=== PATIENT | female | born 1985 | race Caucasian/White ===

== ENCOUNTER 2016-07-02 20:15 | Inpatient (IN) | payer OTHER ==
[2016-07-02] MEDS: DEXTROSE 5%-LACTATED RINGERS 1,000 ML IV SCH (21:00)
[2016-07-02 21:43] LABS: BASOPHIL 0.2 % (0-2.0); EOSINOPHIL 1.1 % (0-4.5); MCH 25.8 pg (25.7-33.7); MCHC 31.9 g/dl (32.0-36.0); MEAN CELL VOLUME 80.8 fl (80-96); MEAN PLT VOLUME 10.8 fl (7.5-11.1); NEUTROPHILS 77.1 % (42.8-82.8); PLATELET COUNT 203 K/MM3 (134-434); RDW 15.9 % (11.6-15.6); WHITE BLOOD COUNT 10.5 K/mm3 (4.0-10.0)
[2016-07-02] MEDS ORDERED: AMPICILLIN - 2 GM in SODIUM CHLORIDE 100 ML IVPB ONE (21:53)
[2016-07-02] MEDS ORDERED: BUTORPHANOL TARTRATE 1 MG/ML VIAL IVPUSH PRN (21:54)
[2016-07-02 21:59] LABS: INR 0.95 (0.82-1.09); PROTHROMBIN TIME (PATIENT) 10.4 SEC (9.98-11.88)
--- NOTE | 2016-07-02 21:59 | HP ---
Past Medical History - Primary Care Physician PCP:: Sameer Killian - Admission Chief Complaint: 40.1 weeks, labor History Source: Patient Limitations to Obtaining History: No Limitations - Past Medical History Cardiovascular: Yes: Other (MVP). No: AFIB, Aneurysm, Aortic Insufficiency, Aortic Stenosis, CAD, CHF, Deep Vein Thrombosis, HTN, Hyperlipdemia, NV, Mitral Insufficiency, Mitral Stenosis, Murmur, Pulmonary Hypertension - Past Surgical History Past Surgical History: Yes: None Hx Myomectomy: No Hx Transabdominal Cerclage: No - Smoking History Smoking history: Never smoked Have you smoked in the past 12 months: No Aproximately how many cigarettes per day: 0 - Alcohol/Substance Use Hx Alcohol Use: No History of Substance Use: reports: None - Social History Usual Living Arrangement: Yes: With Spouse History of Recent Travel: No Home Medications - Allergies Allergies/Adverse Reactions: Allergies Allergy/AdvReac Type Severity Reaction Status Date / Time Shellfish Allergy Mild Vomiting Verified 08/06/15 11:41 - Home Medications Home Medications: Ambulatory Orders Pnv95/Iron Fum/Folic Acid [ Caplet] 1 each PO DAILY 08/06/15 Review of Systems - Review of Systems Constitutional: reports: No Symptoms Eyes: reports: No Symptoms HENT: reports: No Symptoms Neck: reports: No Symptoms Cardiovascular: reports: No Symptoms Respiratory: reports: No Symptoms Gastrointestinal: reports: No Symptoms Genitourinary: reports: No Symptoms Breasts: reports: No Symptoms Reported Musculoskeletal: reports: No Symptoms Integumentary: reports: No Symptoms Neurological: reports: No Symptoms Endocrine: reports: No Symptoms Hematology/Lymphatic: reports: No Symptoms Psychiatric: reports: No Symptoms Physical Exam - Maternity Vital Signs: Vital Signs Temperature Pulse Rate 78 07/02/16 21:00 Respiratory Rate 20 07/02/16 21:00 Blood Pressure 139/82 07/02/16 21:00 O2 Sat by Pulse Oximetry (%) Constitutional: Yes: Well Nourished, No Distress, Calm Eyes: Yes: WNL, Conjunctiva Clear, EOM Intact HENT: Yes: WNL, Atraumatic, Normocephalic Neck: Yes: WNL, Supple, Trachea Midline Cardiovascular: Yes: WNL, Regular Rate and Rhythm Breast(s): Yes: WNL - Abdominal Exam/OB Number of Fetuses: Single Presentation: Vertex Contractions: Yes Regularity: Irregular Intensity: Mod/Strong Monitor Mode: External Heart Rate Location: [facility] Category: I Accelerations: Uniform Decelerations: None - Vaginal Exam/OB Vaginal Bleediing: No Speculum Exam: No Dilatation (cm): 3 cm Effacement (%): 75 Amniotic Membrane Status: Bulging Presentation: Vertex/Position Station: -2 - Physical Exam Musculoskeletal: Yes: WNL Extremities: Yes: WNL Edema: LLE: Trace, RLE: Trace Deep Tendon Reflex Grade: Normal +2 ...Motor Strength: WNL Psychiatric: Yes: WNL - Labs Lab Results: CBC, BMP 07/02/16 21:03 Hemorrhage Risk Assessment - Risk Factors Risk Score: 0 Risk Level: Low Risk Problem List - Problems (1) Post term over 40 weeks Code(s): O48.0 - POST-TERM (2) Labor established Code(s): [id number] - Assessment/Plan admit, fhm, if contraction irregular,pitocin stimulation, rba discussed
[2016-07-02] MEDS ORDERED: OXYTOCIN 15 UNITS/ LR 250 ML 250 ML IVPB SCH (22:00)
[2016-07-02 22:02] LABS: ACTIVATED PTT 27.9 SECONDS (26.9-34.4)
[2016-07-02 22:36] LABS: ANION GAP 11 (8-16); BILIRUBIN,TOTAL 0.3 mg/dL (0.2-1.0); CALCIUM 9.1 mg/dL (8.5-10.1); CO2 25 mmol/L (21-32); COCKROFT - GAULT 0; CREATININE 0.5 mg/dL (0.55-1.02); GLUCOSE,RANDOM 75 mg/dL (74-106); SGOT/AST 15 U/L (15-37); SGPT/ALT 14 U/L (12-78); TOT PROT 7.4 g/dl (6.4-8.2)
[2016-07-02 22:37] LABS: ALK PHOS 231 U/L (45-117)
[2016-07-02 22:59] VITALS: BMI 44.4
[2016-07-02 23:06] LABS: HIV 1 & 2 AB NEGATIVE; HIV 1 AGp24 NEGATIVE
[2016-07-03] MEDS: DEXTROSE 5%-LACTATED RINGERS 1,000 ML IV SCH
--- NOTE | 2016-07-03 00:36 | PN ---
Progress Note (short form) - Note Progress Note: cv 4 to 5 cm 80 vx -2 mi, fhr cat 1, arom, clear , contraction strong now Problem List - Problems (1) Post term over 40 weeks Code(s): O48.0 - POST-TERM (2) Labor established Code(s): [id number] -
[2016-07-03] MEDS ORDERED: ELECTROLYTE-148 SOLN 1,000 ML IV SCH (00:45)
[2016-07-03] MEDS ORDERED: AMPICILLIN - 1 GM in SODIUM CHLORIDE 100 ML IVPB SCH (01:45)
[2016-07-03] MEDS ORDERED: FENTANYL/BUPIVACAINE/NS/PF - PCEA - 50 ML DISP.SYRIN EP SCH (02:00)
[2016-07-03] MEDS ORDERED: BENZOCAINE 20% 57 GM BOTTLE TP PRN (02:34)
[2016-07-03] MEDS ORDERED: BENZOCAINE 28 GM HEMORRHOIDAL OINTMENT TP PRN (02:34)
[2016-07-03] MEDS ORDERED: IBUPROFEN 600 MG TABLET (FP) PO PRN (02:34)
[2016-07-03] MEDS ORDERED: WITCH HAZEL 50% (TUCKS) 40 PAD/JAR PAD TP PRN (02:34)
[2016-07-03] MEDS ORDERED: METHYLERGONOVINE MALEATE 0.2 MG/1 ML AMP IM PRN (02:34)
[2016-07-03] MEDS ORDERED: BISACODYL 10 MG SUPP.RECT RC PRN (02:34)
[2016-07-03] MEDS ORDERED: ACETAMINOPHEN 325 MG TABLET (FP) PO PRN (02:34)
--- NOTE | 2016-07-03 02:37 | PN ---
Progress Note (short form) - Note Progress Note: 2 am cx full 199 vx 2+ pushing, fhr cat1 Problem List - Problems (1) Post term over 40 weeks Code(s): O48.0 - POST-TERM (2) Labor established Code(s): [id number] -
--- NOTE | 2016-07-03 02:40 | PN ---
Progress Note (short form) - Note Progress Note: delivery note cx full, headon perinium, median episiotomy done, head delivered , nasopharynx suctioned , ant and post shoulderwith no difficulty, baby girl 8/9. episiotomy in 3 latyes with 2 o chromiic repaired , no complication Problem List - Problems (1) Post term over 40 weeks Code(s): O48.0 - POST-TERM (2) Labor established Code(s): [id number] -
[2016-07-03 02:42] LABS: ARTERIAL BLD GAS O2 SATURATION 14.9 % (90-98.9); ARTERIAL BLOOD GAS BASE EXCESS -4.4 meq/l (-2-2); ARTERIAL BLOOD GAS HCO3 25.5 meq/L (22-26)
[2016-07-03 02:44] LABS: VENOUS BLOOD GAS HCO3 24.6 meq/L (19-25); VENOUS PH 7.27 (7.32-7.42)
[2016-07-03] MEDS ORDERED: D5W-LR W/ 20 UNITS OXYTOCIN 1,000 ML IV SCH (02:45)
[2016-07-03 02:46] LABS: ART PUNCT SITE OTHER; ARTERIAL BLOOD GAS PO2 14.4 mmHg (80-100); LPM/O2% 21%; PT. ON O2? no; TYPE OF O2 room air
[2016-07-03] MEDS ORDERED: DIPHTH,PERTUSS(ACELL),TET 0.5 ML DISP.SYRIN IM ONE (10:00)
[2016-07-03] MEDS ORDERED: PRENATAL VITAMINS W/ FOLIC ACID TABLET (FP) PO SCH (10:00)
[2016-07-03] MEDS ORDERED: INFLUENZA VACCINE 60 MCG/0.5 ML (P/F DISP.SYRIN 16-17) IM ONE (10:00)
[2016-07-03] MEDS: FERROUS SO4 325 MG TABLET (FP) PO SCH ×2 (10:25→21:38)
[2016-07-03] MEDS: PRENATAL VITAMINS W/ FOLIC ACID TABLET (FP) PO SCH (10:26)
[2016-07-04 07:06] LABS: BASOPHIL 0.4 % (0-2.0); EOSINOPHIL 1.7 % (0-4.5); MCH 26.1 pg (25.7-33.7); MCHC 32.1 g/dl (32.0-36.0); MEAN CELL VOLUME 81.1 fl (80-96); MEAN PLT VOLUME 10.2 fl (7.5-11.1); NEUTROPHILS 68.5 % (42.8-82.8); PLATELET COUNT 176 K/MM3 (134-434); RDW 16.2 % (11.6-15.6); WHITE BLOOD COUNT 9.8 K/mm3 (4.0-10.0)
--- NOTE | 2016-07-04 08:57 | PN ---
Post Progress Note - Subjective Subjective: 31 yo Para 2, status post normal vaginal delivery, seen and evaluated. Doing well. She's breast feeding. Type of Delivery: Vital Signs: Vital Signs Temperature 97.2 F L 07/04/16 07:47 Pulse Rate 72 07/04/16 07:47 Respiratory Rate 18 07/04/16 07:47 Blood Pressure 141/73 07/04/16 07:47 O2 Sat by Pulse Oximetry (%) 99 07/03/16 02:10 Breast Exam: Yes: Soft, Other (No engorgement) Uterus: Yes: Fundus Firm Abdomen/GI: Yes: Abdomen soft, Tolerating PO Lochia: Yes: Rubra Lochia, amount: Moderate Extremities: Yes: Calves non-tender Perineum: Yes: Episiotomy (healing wound) Activity: Ambulating - Labs Labs: CBC WBC 9.8 K/mm3 (4.0-10.0) 07/04/16 06:00 RBC 4.28 M/mm3 (3.60-5.2) 07/04/16 06:00 Hgb 11.2 GM/dL (10.7-15.3) 07/04/16 06:00 Hct 34.7 % (32.4-45.2) 07/04/16 06:00 MCV 81.1 fl (80-96) 07/04/16 06:00 MCHC 32.1 g/dl (32.0-36.0) 07/04/16 06:00 RDW 16.2 % (11.6-15.6) H 07/04/16 06:00 Plt Count 176 K/MM3 (134-434) 07/04/16 06:00 MPV 10.2 fl (7.5-11.1) 07/04/16 06:00 Neutrophils % 68.5 % (42.8-82.8) 07/04/16 06:00 Lymphocytes % 23.8 % (8-40) D 07/04/16 06:00 Monocytes % 5.6 % (3.8-10.2) 07/04/16 06:00 Eosinophils % 1.7 % (0-4.5) 07/04/16 06:00 Basophils % 0.4 % (0-2.0) 07/04/16 06:00 Assessment/Plan Status post vaginal delivery Stable Continue routine care
--- NOTE | 2016-07-04 08:59 | DS ---
Physical Exam-BIOCHEMICAL ENGINEER Vital Signs: Vital Signs Temperature 97.2 F L 07/04/16 07:47 Pulse Rate 72 07/04/16 07:47 Respiratory Rate 18 07/04/16 07:47 Blood Pressure 141/73 07/04/16 07:47 O2 Sat by Pulse Oximetry (%) 99 07/03/16 02:10 Constitutional: Yes: Well Nourished Eyes: Yes: Conjunctiva Clear HENT: Yes: Atraumatic Neck: Yes: Supple, Trachea Midline Cardiovascular: Yes: Regular Rate and Rhythm Respiratory: Yes: Regular, CTA Bilaterally Gastrointestinal: Yes: Normal Bowel Sounds Pelvis: Yes: WNL External Genitalia: Yes: Normal Vaginal Exam: Yes: Normal Cervix: Yes: Normal Uterus: Yes: Firm ....Post : Yes: Uterus firm, Moderate lochia rubra Breast(s): Yes: WNL, Other (No engorgement) Integumentary: Yes: WNL Neurological: Yes: Alert, Oriented ...Motor Strength: WNL Psychiatric: Yes: Alert, Oriented Labs: CBC, BMP 07/04/16 06:00 07/02/16 21:03 Delivery - Delivery Type of Anesthesia: Local, Epidural Episiotomy/Laceration: Midline EBL (cc): 300 Delivery, Single - Stages of Labor Date 1st Stage Initiatied: 07/02/16 Time 1st Stage Initiated: 18:00 Date 2nd Stage Initiated: 07/03/16 Time 2nd Stage Initiated: 02:00 Date of Delivery: 07/03/16 Time of Delivery: 02:20 Time Placenta Delivered: 02:22 - Condition of Soaker Meat/Equal Employment Opportunity Officer Present: No Gender: Female Weight: 6 lb 11 oz Position: Left, OA Total Hours ROM (Hrs/Mins): 1hr/42mins - 1 Minute Total Score: 8 5 Minutes Total Score: 9 - [place] Feeding Plan Initial Plan: Elected not to breastfeed exclusively throughout hospitalization Discharge Summary Reason For Visit: ADMIT-LABOR Current Active Problems Labor established (Acute) Post term over 40 weeks (Acute) Procedures: Principal: Normal spontaneous vaginal delivery Hospital Course: Routine care Condition: Good - Instructions Diet, Activity, Other Instructions: Regular diet No douching, no intercourse x 6 weeks. F/U in clinic in 6 weeks - Home Medications Comprehensive Discharge Medication List: Ambulatory Orders Pnv95/Iron Fum/Folic Acid [ Caplet] 1 each PO DAILY 08/06/15
[2016-07-04] MEDS: PRENATAL VITAMINS W/ FOLIC ACID TABLET (FP) PO SCH (09:13)
[2016-07-04] MEDS: FERROUS SO4 325 MG TABLET (FP) PO SCH ×2 (09:13→21:21)
[2016-07-04] MEDS ORDERED: SENNOSIDES/DOCUSATE COMBO (SENNA PLUS) TABLET (UD) PO PRN (22:00)
[2016-07-05] MEDS: FERROUS SO4 325 MG TABLET (FP) PO SCH (09:48)
[2016-07-05] MEDS: PRENATAL VITAMINS W/ FOLIC ACID TABLET (FP) PO SCH (09:48)
[2016-07-05 11:29] VITALS: BP 140/78; PULSE 76; TEMP 98.1
== END 2016-07-05 11:50 | disposition home or self-care (01) | DRG 560 ==
LOC: JDEL 20:15 → JLDR 20:35 → J3W 07-03 04:45
PROVIDERS: ADMIT Obstetrics & Gynecology; ATTEND Obstetrics & Gynecology
PROC: 10E0XZZ Delivery of Products of Conception, External Approach (ICD-10-PCS; principal; 2016-07-03)
PROC: 0W8NXZZ Division of Female Perineum, External Approach (ICD-10-PCS; 2016-07-03)
DX: O48.0 Post-term pregnancy (principal); Z3A.40 40 weeks gestation of pregnancy; Z37.0 Single live birth
CPT/HCPCS: 36415; 36600; 59409; 80053; 82803; 85025; 85610; 85730; 86593; 86762; 86850; 86900; 86901; 87340; 87389; 90686; 90715; G0008

== ENCOUNTER 2018-05-04 17:49 | Inpatient (IN) | payer OTHER ==
[2018-05-04] MEDS ORDERED: OXYTOCIN 20 UNITS in 0.9% NS 20 UNIT/1,000 ML INFUS.BAG IV ONE ×2 (18:05→20:42)
[2018-05-04] MEDS ORDERED: LIDOCAINE HCL 1% PRESERVATIVE FREE - 30ML VIAL ONE (19:30)
--- NOTE | 2018-05-04 19:53 | HP ---
Past Medical History - Admission Chief Complaint: Delivered a baby at home History of Present Illness: 33 yo brought to L&D by ambulance after home delivery. Placenta delivered in ambulance. Patient sustained a second degree perineal tear. She never had care. She claims that she only knew about the one week ago. History Source: Patient Limitations to Obtaining History: No Limitations - Past Medical History Cardiovascular: Yes: Other (MVP). No: AFIB, Aneurysm, Aortic Insufficiency, Aortic Stenosis, CAD, CHF, Deep Vein Thrombosis, HTN, Hyperlipdemia, [place], Mitral Insufficiency, Mitral Stenosis, Murmur, Pulmonary Hypertension ...: 3 ...Para: 3 - Past Surgical History Past Surgical History: Yes: None Hx Myomectomy: No Hx Transabdominal Cerclage: No - Smoking History Smoking history: Never smoked Have you smoked in the past 12 months: No Aproximately how many cigarettes per day: 0 - Alcohol/Substance Use Hx Alcohol Use: No History of Substance Use: reports: None - Social History History of Recent Travel: No Home Medications - Allergies Allergies/Adverse Reactions: Allergies Allergy/AdvReac Type Severity Reaction Status Date / Time Shellfish Allergy Mild Vomiting Verified 05/04/18 17:55 - Home Medications Home Medications: Ambulatory Orders Pnv95/Iron Fum/Folic Acid [ Caplet] 1 each PO DAILY 08/06/15 Review of Systems - Review of Systems Constitutional: reports: No Symptoms Eyes: reports: No Symptoms HENT: reports: No Symptoms Neck: reports: No Symptoms Cardiovascular: reports: No Symptoms Respiratory: reports: No Symptoms Gastrointestinal: reports: No Symptoms Genitourinary: reports: Vaginal Bleeding Neurological: reports: No Symptoms Psychiatric: reports: No Symptoms Pain Intensity: 3 Physical Exam - Maternity Vital Signs: Vital Signs Temperature 99.1 F 05/04/18 17:55 Pulse Rate 91 H 05/04/18 17:55 Respiratory Rate 18 05/04/18 17:55 Blood Pressure 110/95 05/04/18 17:55 O2 Sat by Pulse Oximetry (%) 98 05/04/18 17:55 Constitutional: Yes: Well Nourished. No: No Distress HENT: Yes: Atraumatic Neck: Yes: Supple Cardiovascular: Yes: Regular Rate and Rhythm Lungs: Clear to auscultation - Vaginal Exam/OB Vaginal Bleediing: Yes - Physical Exam ...Motor Strength: WNL Psychiatric: Yes: Alert, Oriented Problem List - Problems (1) Status post vaginal delivery Code(s): [id number] - Assessment/Plan Status post home delivery Second degree perineal laceration Repair of second degree laceration with 2.0 chromic under local anesthesia.
[2018-05-04] MEDS ORDERED: BENZOCAINE 20% 57 GM BOTTLE TP PRN (19:54)
[2018-05-04] MEDS ORDERED: BISACODYL 10 MG SUPP.RECT RC PRN (19:54)
[2018-05-04] MEDS ORDERED: BENZOCAINE 28 GM HEMORRHOIDAL OINTMENT TP PRN (19:54)
[2018-05-04] MEDS ORDERED: WITCH HAZEL 50% (TUCKS) 40 PAD/JAR PAD TP PRN (19:54)
[2018-05-04] MEDS ORDERED: METHYLERGONOVINE MALEATE 0.2 MG/1 ML AMP IM PRN (19:54)
--- NOTE | 2018-05-04 19:58 | PN ---
Delivery - Delivery Vaginal Delivery: Other (Home delivery) Episiotomy/Laceration: 2nd degree (Second degree laceration repaired with 2.0 chromic) Remarks - Remarks Remarks: Patient found to have a second degree laceration after home delivery. Laceration repaired with 2.0 Chromic using local anesthesia.
[2018-05-04 19:59] VITALS: BMI 45.7
[2018-05-04] MEDS: OXYTOCIN 20 UNITS in 0.9% NS 20 UNIT/1,000 ML INFUS.BAG IV SCH (20:44)
[2018-05-04 22:01] LABS: EOS % 0.1 % (0-4.5); HEMATOCRIT 37.3 % (32.4-45.2); HEMOGLOBIN 12.5 GM/dL (10.7-15.3); LYMPH % 8.1 % (8-40); MCH 28.5 pg (25.7-33.7); MCHC 33.5 g/dl (32.0-36.0); MEAN PLT VOLUME 11.1 fl (7.5-11.1); MONO % 3.3 % (3.8-10.2); NEUT % 88.5 % (42.8-82.8); PLATELET COUNT 177 K/MM3 (134-434); RBC 4.39 M/mm3 (3.60-5.2); RDW 15.4 % (11.6-15.6); WHITE BLOOD COUNT 13.6 K/mm3 (4.0-10.0)
[2018-05-04 22:10] LABS: INR 0.96 (0.83-1.09); PROTHROMBIN TIME (PATIENT) 11.3 SEC (9.7-13.0)
[2018-05-04 22:18] LABS: ACTIVATED PTT 26.2 SECONDS (25.2-36.5)
[2018-05-04 22:20] LABS: ALBUMIN 2.4 g/dl (3.4-5.0); ALK PHOS 190 U/L (45-117); ANION GAP 11 MMOL/L (8-16); BILIRUBIN,TOTAL 0.2 mg/dL (0.2-1); BLOOD UREA NITROGEN 7 mg/dL (7-18); CALCIUM 8.3 mg/dL (8.5-10.1); CHLORIDE 107 mmol/L (98-107); CO2 20 mmol/L (21-32); CREATININE 0.3 mg/dL (0.55-1.3); GLUCOSE,RANDOM 90 mg/dL (74-106); SGOT/AST 15 U/L (15-37); SGPT/ALT 19 U/L (13-61); SODIUM 139 mmol/L (136-145); TOT PROT 6.2 g/dl (6.4-8.2)
[2018-05-04 22:58] LABS: URINE APPEARANCE SLCLOUDY; URINE BILIRUBIN NEGATIVE (<2.0 mg/dL); URINE COLOR YELLOW; URINE GLUCOSE (UA) NEGATIVE (NEGATIVE); URINE KETONE 1+ (NEGATIVE); URINE LEUK ESTERASE NEGATIVE (NEGATIVE); URINE NITRITE NEGATIVE (NEGATIVE); URINE PROTEIN 1+ (NEGATIVE); URINE UROBILINOGEN NEGATIVE mg/dL (0.2-1.0)
[2018-05-04 23:29] LABS: COCAINE, UR NEGATIVE ng/ml (CUTOFF=300); METHADONE, UR NEGATIVE ng/ml (CUTOFF=300); OPIATES, URI NEGATIVE ng/ml (CUTOFF=300); PHENCYCLIDINE,URINE NEGATIVE ng/ml (CUTOFF=25); URINE AMPHETAMINES NEGATIVE ng/ml (CUTOFF=500); URINE BARBITURATES NEGATIVE ng/ml (CUTOFF=200); URINE BENZODIAZEPINES NEGATIVE ng/ml (CUTOFF=200)
[2018-05-04] MEDS: FERROUS SO4 325 MG TABLET (FP) PO SCH (23:37)
[2018-05-05] MEDS: IBUPROFEN 600 MG TABLET (FP) PO PRN ×2 (02:25→17:50)
[2018-05-05] MEDS: ACETAMINOPHEN 325 MG TABLET (FP) PO PRN ×2 (02:26→17:50)
[2018-05-05] MEDS: OXYTOCIN 20 UNITS in 0.9% NS 20 UNIT/1,000 ML INFUS.BAG IV SCH ×2 (02:40→21:09)
--- NOTE | 2018-05-05 06:36 | PN ---
Post Progress Note Type of Delivery: Vital Signs: Vital Signs Temperature 98.4 F 05/05/18 06:00 Pulse Rate 87 05/05/18 06:00 Respiratory Rate 18 05/05/18 06:00 Blood Pressure 115/83 05/05/18 06:00 O2 Sat by Pulse Oximetry (%) 100 05/04/18 20:15 Uterus: Yes: Fundus Firm Abdomen/GI: Yes: Abdomen soft Lochia: Yes: Rubra Extremities: Yes: Calves non-tender Activity: Ambulating - Labs Labs: CBC WBC 13.6 K/mm3 (4.0-10.0) H 05/04/18 21:40 RBC 4.39 M/mm3 (3.60-5.2) 05/04/18 21:40 Hgb 12.5 GM/dL (10.7-15.3) 05/04/18 21:40 Hct 37.3 % (32.4-45.2) 05/04/18 21:40 MCV 85.0 fl (80-96) 05/04/18 21:40 MCH 28.5 pg (25.7-33.7) 05/04/18 21:40 MCHC 33.5 g/dl (32.0-36.0) 05/04/18 21:40 RDW 15.4 % (11.6-15.6) 05/04/18 21:40 Plt Count 177 K/MM3 (134-434) 05/04/18 21:40 MPV 11.1 fl (7.5-11.1) 05/04/18 21:40 Absolute Neuts (auto) 12.0 K/mm3 (1.5-8.0) H 05/04/18 21:40 Neutrophils % 88.5 % (42.8-82.8) H D 05/04/18 21:40 Lymphocytes % 8.1 % (8-40) D 05/04/18 21:40 Monocytes % 3.3 % (3.8-10.2) L 05/04/18 21:40 Eosinophils % 0.1 % (0-4.5) D 05/04/18 21:40 Basophils % 0.0 % (0-2.0) 05/04/18 21:40 Nucleated RBC % 0 % (0-0) 05/04/18 21:40 Problem List - Problems (1) Status post vaginal delivery Code(s): [id number] - Assessment/Plan regular diet po pain meds awaiting cbc routine care
[2018-05-05 07:21] LABS: BASO % 0.2 % (0-2.0); EOS % 0.3 % (0-4.5); HEMATOCRIT 34.8 % (32.4-45.2); HEMOGLOBIN 11.8 GM/dL (10.7-15.3); LYMPH % 15.5 % (8-40); MCH 28.3 pg (25.7-33.7); MCHC 33.9 g/dl (32.0-36.0); MEAN CELL VOLUME 83.6 fl (80-96); MEAN PLT VOLUME 10.8 fl (7.5-11.1); MONO % 5.2 % (3.8-10.2); NEUT % 78.8 % (42.8-82.8); PLATELET COUNT 168 K/MM3 (134-434); RBC 4.16 M/mm3 (3.60-5.2); RDW 15.1 % (11.6-15.6)
[2018-05-05] MEDS: FERROUS SO4 325 MG TABLET (FP) PO SCH ×2 (09:36→21:49)
[2018-05-05] MEDS: PRENATAL VITAMINS W/ FOLIC ACID TABLET (FP) PO SCH (09:36)
[2018-05-05] MEDS ORDERED: FLU VACCINE QUAD 60 MCG/0.5 ML (MDV 18-19) IM ONE (10:00)
[2018-05-05] MEDS ORDERED: SENNOSIDES/DOCUSATE COMBO (SENNA PLUS) TABLET (UD) PO PRN (22:00)
--- NOTE | 2018-05-06 01:49 | DS ---
Physical Exam-DIRECTOR OF PRODUCT MANAGEMENT Vital Signs: Vital Signs Temperature 98.4 F 05/05/18 22:00 Pulse Rate 76 05/05/18 22:00 Respiratory Rate 18 05/05/18 22:00 Blood Pressure 112/68 05/05/18 22:00 O2 Sat by Pulse Oximetry (%) 100 05/05/18 09:00 Constitutional: Yes: Well Nourished, No Distress, Calm Eyes: Yes: Conjunctiva Clear, EOM Intact HENT: Yes: Atraumatic, Normocephalic Neck: Yes: Trachea Midline Cardiovascular: Yes: Regular Rate and Rhythm Respiratory: Yes: Regular Gastrointestinal: Yes: Normal Bowel Sounds ....Post : Yes: Uterus firm, Uterus non-tender Neurological: Yes: Alert, Oriented Psychiatric: Yes: Alert, Oriented Labs: CBC, BMP 05/05/18 06:30 05/04/18 21:40 Delivery - Delivery Vaginal Delivery: Other (Home delivery) Type of Anesthesia: Local Episiotomy/Laceration: 2nd degree Delivery, Single - Stages of Labor Date 1st Stage Initiatied: 05/04/18 Time 1st Stage Initiated: 14:00 Date of Delivery: 05/04/18 Time of Delivery: 17:00 Time Placenta Delivered: 17:30 - Condition of Transfer Table Operator Helper/Instructional Services Librarian Present: No Gender: Female Weight: 7 lb - Feeding Plan Initial Plan: Exclusive throughout hospitalization Discharge Summary Reason For Visit: DELIVERY AT HOME Current Active Problems Status post vaginal delivery (Acute) Condition: Good - Instructions Diet, Activity, Other Instructions: Physical activity Resume your normal everyday activity as tolerated no heavy lifting or strenuous exercise until seen by your doctor. No sexually activity for 6 weeks post . Wound care You may shower daily, no soaking in tubs/baths/pools for 6 weeks. Diet There are no dietary restrictions. Eat healthy, high-fiber foods. Drink 6 to 8 glasses of liquid each day. This will assist in keeping your bowels regular. Pain management You may take Tylenol or Ibuprofen (for example, Motrin, Advil etc.) as needed for pain. Call MD for any of the following: Severe pain not relieved by medication Fever of 101 or higher Excessive bleeding or drainage on dressing Inability to urinate Disposition: HOME - Home Medications Comprehensive Discharge Medication List: Ambulatory Orders Pnv95/Iron Fum/Folic Acid [ Caplet] 1 each PO DAILY 08/06/15 Ibuprofen [Motrin -] 600 mg PO QID PRN #28 tablet 05/06/18
[2018-05-06 03:15] LABS: HBsAG SCREEN Negative (Negative)
[2018-05-06] MEDS: PRENATAL VITAMINS W/ FOLIC ACID TABLET (FP) PO SCH (09:08)
[2018-05-06] MEDS: FERROUS SO4 325 MG TABLET (FP) PO SCH (09:08)
[2018-05-06 09:33] VITALS: BP 128/75; PULSE 84; TEMP 98.5
--- NOTE | 2018-05-20 16:41 | PATH ---
Surgical Pathology Report Patient Name: DARINEL RUSH Med. Rec. #: [id number] /Age/Gender: 1985 (Age: 33) / F Account: [id number] Location: [facility] OBS/BREAST BUFFER Taken: 05/04/2018 Received: 05/05/2018 Reported: 05/20/2018 Physicians: Johanne Turner M.D. Specimen(s) Received PLACENTA Clinical History , no care, home delivery, placenta delivered in ambulance, history of 2 , 1SPAB, history of mitral valve regurgitation Final Diagnosis PLACENTA: THIRD TRIMESTER PLACENTA. TRIVASCULAR CORD. MEMBRANES WITH NO DIAGNOSTIC ABNORMALITIES. Electronically Signed Paris Aguilar M.D. Gross Description The specimen is received fresh labeled placenta and is a 558 gram, 15.5 x 15.5 x 3.8 cm. placenta with attached membranes and umbilical cord. The attached membranes are rodriguez, translucent with focal opacities and insert marginally. The umbilical cord measures 28 cm. in length and averages 1.2 cm. in diameter. The cord inserts centrally. No true knots or strictures are identified. Cut surface of the umbilical cord reveals 3 vessels. The surface is mejias-blue with minimal fibrin deposition and appropriate caliber vessels. The maternal surface is red-brown with focal defects. Sectioning reveals red-brown, spongy parenchyma. No lesions are identified. Nut Chopper sections are submitted in three cassettes as follows: 1- membrane rolls and umbilical cord; 2-3- full thickness sections of placenta. /05/19/2018 saudi05/19/2018
== END 2018-05-06 13:08 | disposition home or self-care (01) | DRG 546 ==
LOC: JER 17:49 → JLDR 18:00 → J3W 22:20
PROVIDERS: ADMIT Obstetrics & Gynecology; ATTEND Obstetrics & Gynecology
PROC: 0KQM0ZZ Repair Perineum Muscle, Open Approach (ICD-10-PCS; principal; 2018-05-04)
DX: O90.89 Other complications of the puerperium, not elsewhere classified (principal); O70.1 Second degree perineal laceration during delivery
CPT/HCPCS: 36415; 59409; 71046-TC-FY; 80048; 80053; 80307; 81003; 81015; 85025; 85610; 85730; 86593; 86762; 86850; 86900; 86901; 87340; 87389; 88307-TC; 90686; 99283-25; G0008

== ENCOUNTER 2019-11-02 18:22 | Emergency (ER) | payer OTHER ==
[2019-11-02 18:34] VITALS: BP 135/94; PULSE 89; BMI 41.6
[2019-11-02] MEDS ORDERED: KETOROLAC TROMETHAMINE 30 MG/1 ML VIAL IM ONE (19:02)
[2019-11-02] MEDS ORDERED: KETOROLAC TROMETHAMINE 30 MG/1 ML VIAL ONE (19:04)
--- NOTE | 2019-11-02 19:18 | PDOC ---
History of Present Illness - General Chief Complaint: Pain Stated Complaint: LOWER BACK- UNSPECIFIED Time Seen by Provider: 11/02/19 18:41 History Source: Patient Exam Limitations: No Limitations - History of Present Illness Travel History: No Initial Comments: 11/02/19 19:12 HISTORY OF PRESENT ILLNESS: 34-year-old female denies medical history presents emergency department for evaluation of diffuse lower back pain which waxes and wanes currently 08/08. Patient is unable to identify any aggravating or alleviating factors. Patient reports 1 day prior to the pain starting she had mild dysuria without hematuria. She reports her urinary symptoms lasted for 1 day and have not been present since that time. She reports yesterday had a temperature of 100.5 degrees. No recent travel or sick contacts. PAST MEDICAL HISTORY: Denies past medical history SURGICAL HISTORY: Denies ALLERGIES: No known drug allergies; shellfish REVIEW OF SYSTEMS General/Constitutional: Denies fever or chills. Denies weakness, weight change. HEENT: Denies change in vision. Denies ear pain or discharge. Denies sore throat. Cardiovascular: Denies chest pain or shortness of breath. Respiratory: Denies cough, wheezing, or hemoptysis. Gastrointestinal: Denies nausea, vomiting, diarrhea or constipation. Denies rectal bleeding. Genitourinary: See HPI Musculoskeletal: Denies joint or muscle swelling or pain. Denies neck or back pain. Skin and breasts: Denies rash or easy bruising. Neurologic: Denies headache, vertigo, loss of consciousness, or loss of sensation. Psychiatric: Denies depression or anxiety. Endocrine: Denies increased thirst. Denies abnormal weight change. Hematologic/Lymphatic: Denies anemia, easy bleeding, or history of blood clots. Allergic/Immunologic: Denies hives or skin allergy. Denies latex allergy. PHYSICAL EXAM General Appearance: Well-appearing, appropriately dressed. No apparent distress, no intoxication. Gastrointestinal/Abdominal: Normal bowel sounds. Abdomen soft, non-distended. No tenderness or rebound tenderness. No organomegaly, pulsatile mass, guarding, hernia, hepatomegaly, splenomegaly. Musculoskeletal/Extremities: Normal inspection. FROM of all extremities, normal capillary refill. Pelvis Stable. No CVA tenderness. No tenderness to extremities, pedal edema, swelling, erythema or deformity. Past History - Medical History Allergies/Adverse Reactions: Allergies Allergy/AdvReac Type Severity Reaction Status Date / Time Shellfish Allergy Mild Vomiting Verified 11/02/19 18:33 Home Medications: Ambulatory Orders Pnv95/Iron Fum/Folic Acid [ Caplet] 1 each PO DAILY 08/06/15 Ibuprofen [Motrin -] 600 mg PO QID PRN #28 tablet 05/06/18 Cephalexin Monohydrate [Keflex -] 500 mg PO BID #14 capsule 11/02/19 Anemia: No Asthma: No Cancer: No Cardiac Disorders: Yes (Mitral Valve Regurgitation) CVA: No COPD: No CHF: No Dementia: No Diabetes: No GI Disorders: No Disorders: No HTN: No Hypercholesterolemia: No Liver Disease: No Seizures: No Thyroid Disease: No - Surgical History Abdominal Surgery: No Appendectomy: No Cardiac Surgery: No Cholecystectomy: No Lung Surgery: No Neurologic Surgery: No Orthopedic Surgery: No - Reproductive History Is Patient Now?: No (#): 2 Para: 1 Therapeutic (s) & number: Yes Spontaneous : 1 - Psycho-Social/Smoking History Smoking History: Never smoked Have you smoked in the past 12 months: No Number of Cigarettes Smoked Daily: 0 *Physical Exam - Vital Signs Last Vital Signs Temp Pulse Resp BP Pulse Ox 89 18 135/94 99 11/02/19 18:28 11/02/19 18:28 11/02/19 18:28 11/02/19 18:28 ED Treatment Course - Medications Given in the ED: ED Medications Discontinued Medications Generic Name Dose Route Start Last Admin Trade Name Freq PRN Reason Stop Dose Admin Ketorolac Tromethamine 30 mg 11/02/19 19:02 11/02/19 19:05 Toradol Injection - IM 11/02/19 19:03 30 mg ONCE ONE Administration Medical Decision Making - Medical Decision Making 11/02/19 19:19 A/P: 34-year-old woman with dysuria and lower back pain for 5 days No CVA tenderness elicited Abdomen soft nontender nondistended Toradol 30 mg IM now-patient states she is not and risks and benefits of receiving Toradol and have been discussed with the patient who chooses to receive the medication for pain relief despite potential risks. Urinalysis Urine Urine culture Reassess 11/02/19 20:01 Laboratory Tests 11/02/19 18:48 Urine Color Yellow Urine Appearance Clear Urine pH 5.5 Ur Specific [place] 1.019 Urine Protein 1+ H Urine Glucose (UA) Negative Urine Ketones Negative Urine Blood Trace Urine Nitrite Negative Urine Bilirubin Negative Urine Urobilinogen 0.2 Ur Leukocyte Esterase 1+ H Urine WBC (Auto) 143 Urine RBC (Auto) 47 Urine Casts (Auto) 2 U Epithel Cells (Auto) 6 Urine Bacteria (Auto) 107 Urine HCG, Qual Negative Patient is symptomatic I will treat with Keflex 500 mg twice daily for the next 7 days. I discussed the physical exam findings, ancillary test results and final diagnoses with the patient. I answered all of the patient's questions. The p atann was satisfied with the care received and felt comfortable with the discharge plan and treatment plan. The patient will call their primary care physician within 24 hours to arrange follow-up and will return to the Emergency Department with any new, persistent or worsening symptoms. Portions of this note have been documented using voice recognition software. As a result, errors may occur in the dining room maid process. Effort has been made to correct all grammatical and dining room maid error, but some may have been missed which may produce sporadic inaccurate dining room maid or nonsensical phrases. Discharge - Discharge Information Problems reviewed: Yes Clinical Impression/Diagnosis: Cystitis Condition: Stable Disposition: HOME - Admission No - Additional Discharge Information Prescriptions: Cephalexin Monohydrate [Keflex -] 500 mg PO BID #14 capsule - Follow up/Referral - Patient Discharge Instructions Additional Instructions: Rest, drink lots of fluids: Teas, water, soups Avoid contact with others until fevers and symptoms resolved Lots of handwashing and good hygiene Continue [id number] medications for symptomatic relief Tylenol or Motrin for fever and pain Continue all of antibiotics until completed Followup with private physician in one week for repeat urinalysis/reevaluation Return to emergency department for worsened symptoms, fevers, dehydration - Post Discharge Activity
[2019-11-02 19:55] LABS: HCG,QUALITATIVE URINE Negative
[2019-11-02 19:58] LABS: EPI CELLS 6 /uL (0-25.1); HYALINE CASTS 2 /uL (0-3.1); PH,URINE 5.5 (5.0-8.0); URINE APPEARANCE CLEAR; URINE BACTERIA 107 /uL (0-1359); URINE BILIRUBIN NEGATIVE (NEGATIVE); URINE COLOR YELLOW; URINE GLUCOSE (UA) NEGATIVE (NEGATIVE); URINE KETONE NEGATIVE (NEGATIVE); URINE LEUK ESTERASE 1+ (NEGATIVE); URINE NITRITE NEGATIVE (NEGATIVE); URINE PROTEIN 1+ (NEGATIVE); URINE RBC 47 /uL (0-23.9); URINE UROBILINOGEN 0.2 mg/dL (0.2-1.0); URINE WBC 143 /uL (0-25.8)
== END 2019-11-02 21:26 | disposition home or self-care (01) ==
LOC: JERFT 18:22 → JER 18:22 → JERFT 21:26
PROC: 3E0233Z Introduction of Anti-inflammatory into Muscle, Percutaneous Approach (ICD-10-PCS; principal; 2019-11-02)
DX: N30.90 Cystitis, unspecified without hematuria (principal)
CPT/HCPCS: 81003; 84703; 87086; 99284-25

== ENCOUNTER 2021-06-19 14:11 | Emergency (ER) | payer OTHER ==
[2021-06-19 14:20] VITALS: BP 142/62; PULSE 87; TEMP 99.4; BMI 43.9
[2021-06-19] MEDS ORDERED: IBUPROFEN 400 MG TABLET (FP) PO ONE ×2 (15:34→15:45)
[2021-06-19] MEDS ORDERED: METHOCARBAMOL 750 MG TAB PO ONE (16:58)
[2021-06-19] MEDS ORDERED: METHOCARBAMOL 500 MG TABLET ONE (17:09)
[2021-06-19 17:26] LABS: HCG,QUALITATIVE URINE Negative
[2021-06-19] MEDS ORDERED: ASPIRIN 81 MG CHEWABLE TABLETS PO ONE (17:58)
[2021-06-19] MEDS ORDERED: ASPIRIN 325 MG TABLET ONE (18:34)
[2021-06-19 18:59] LABS: CALCIUM 9.2 mg/dl (8.5-10); MEAN CELL VOLUME 87.5 fl (80-96)
[2021-06-19 19:01] LABS: HEMATOCRIT 42.3 % (32.4-45.2); HEMOGLOBIN 14.4 G/dL (10.7-15.3); MCH 29.8 pg (25.7-33.7); MEAN PLT VOLUME 8.6 fl (7.5-11.1); PLATELET COUNT 267.1 10^3/uL (134-434); RBC 4.83 10^6/uL (3.60-5.2); RDW 14.8 % (11.6-15.6); WHITE BLOOD COUNT 9.8 10^3/uL (4.0-10.8)
[2021-06-19 19:06] LABS: ALBUMIN 4.2 g/dl (3.4-5.0); BILIRUBIN,TOTAL 0.6 mg/dl (0.2-1); CREATININE 0.5 mg/dl (0.55-1.3); TOT PROT 7.5 g/dl (6.4-8.2)
== END 2021-06-19 20:43 | disposition home or self-care (01) ==
LOC: FER 14:11
DX: M25.551 Pain in right hip (principal)
CPT/HCPCS: 36415; 80053; 81003; 84484; 84703; 85025; 87086; 93005; 99284-25

== ENCOUNTER 2022-05-30 18:45 | Emergency (ER) | payer OTHER ==
[2022-05-30 18:51] VITALS: BP 145/87; PULSE 90; RESP 22; TEMP 98.6; BMI 43.7
[2022-05-30 19:15] LABS: URINE APPEARANCE CLEAR; URINE BILIRUBIN NEGATIVE (NEGATIVE); URINE COLOR YELLOW; URINE GLUCOSE (UA) NEGATIVE (NEGATIVE); URINE KETONE NEGATIVE (NEGATIVE); URINE LEUK ESTERASE NEGATIVE (NEGATIVE); URINE NITRITE NEGATIVE (NEGATIVE); URINE PROTEIN NEGATIVE (NEGATIVE)
[2022-05-30 19:18] LABS: HCG,QUALITATIVE URINE Negative
[2022-05-30 21:33] LABS: BASO % 2.3 % (0-2.0); HEMOGLOBIN 13.4 GM/dL (10.7-15.3); MCHC 33.6 g/dl (32.0-36.0); MEAN CELL VOLUME 86.4 fl (80-96); MEAN PLT VOLUME 8.9 fl (7.5-11.1); NEUT % 60.7 % (42.8-82.8); PLATELET COUNT 280 10^3/uL (134-434); RBC 4.63 M/mm3 (3.60-5.2); RDW 14.4 % (11.6-15.6); WHITE BLOOD COUNT 9.7 K/mm3 (4.0-10.0)
[2022-05-30 21:45] LABS: CALCIUM 9.2 mg/dL (8.5-10.1)
[2022-05-30 21:46] LABS: ALBUMIN 3.6 g/dl (3.4-5.0); BLOOD UREA NITROGEN 16.3 mg/dL (7-18)
[2022-05-30 21:48] LABS: CREATININE 0.5 mg/dL (0.55-1.3)
[2022-05-30 21:50] LABS: BILIRUBIN,TOTAL 0.2 mg/dL (0.2-1); TOT PROT 7.4 g/dl (6.4-8.2)
[2022-05-30] MEDS ORDERED: KETOROLAC TROMETHAMINE 30 MG/1 ML VIAL IVPUSH ONE (23:14)
[2022-05-30] MEDS ORDERED: KETOROLAC TROMETHAMINE 30 MG/1 ML VIAL ONE (23:29)
== END 2022-05-31 00:42 | disposition home or self-care (01) ==
LOC: JER 18:45
PROC: 3E033NZ Introduction of Analgesics, Hypnotics, Sedatives into Peripheral Vein, Percutaneous Approach (ICD-10-PCS; principal; 2022-05-30)
DX: R10.11 Right upper quadrant pain (principal)
CPT/HCPCS: 36415; 76705-TC; 80053; 81003; 83690; 84703; 85025; 87086; 99284-25